=== PATIENT | male | born 1965 | race African-American/Black ===

== ENCOUNTER → 2017-09-24 | Outpatient (CLI) | payer OTHER ==
[2017-09-24 16:47] LABS: Basophils % (A) 0 %; Eosinophils # (A) 0.1 k/uL (0-0.7); Eosinophils % (A) 2 %; HCT 41.8 % (39.0-53.0); HGB 14.2 gm/dL (13.0-17.5); Lymphocytes # (A) 1.3 k/uL (1.0-4.8); Lymphocytes % (A) 36 %; MCH 28.5 pg (25.0-35.0); MCHC 33.9 g/dL (31.0-37.0); MCV 83.9 fL (80.0-100.0); Mean Platelet Volume 8.2; Monocytes # (A) 0.2 k/uL (0-1.0); Monocytes % (A) 5 %; Neutrophils # (A) 2.1 k/uL (1.3-7.7); Neutrophils % (A) 56 %; Platelet Count 203 k/uL (150-450); RBC 4.98 m/uL (4.30-5.90); RDW 13.4 % (11.5-15.5); WBC 3.8 k/uL (3.8-10.6)
[2017-09-24 16:53] LABS: Appearance,Urine Clear (Clear); Bilirubin,Urine Negative (Negative); Blood,Urine Negative (Negative); Color,Urine Yellow; Glucose,Urine (UA) Negative (Negative); Ketones,Urine Negative (Negative); Leukocyte Esterase,Urine Negative (Negative); Mucus,Urine Moderate /hpf; Nitrite,Urine Negative (Negative); Protein,Urine 2+ (Negative); RBC,Urine <1 /hpf (0-5); Specific Gravity,Urine 1.023 (1.001-1.035); Squamous Epithelial Cell,Urine <1 /hpf (0-4); Urobilinogen,Urine <2.0 mg/dL (<2.0); WBC,Urine <1 /hpf (0-5)
[2017-09-24 17:01] LABS: Albumin 3.9 g/dL (3.5-5.0); Anion Gap 11 mmol/L; Blood Urea Nitrogen 14 mg/dL (9-20); Calcium 9.2 mg/dL (8.4-10.2); Carbon Dioxide 24 mmol/L (22-30); Chloride 106 mmol/L (98-107); Glucose 224 mg/dL (74-99); Magnesium 1.5 mg/dL (1.6-2.3); Phosphorus 2.8 mg/dL (2.5-4.5); Potassium 3.8 mmol/L (3.5-5.1); Sodium 141 mmol/L (137-145)
[2017-09-25 02:14] LABS: Iron Saturation 18.73 (15.00-50.00)
[2017-09-25 02:24] LABS: Vitamin D 25 Hydroxy 19.8 ng/mL (30.0-100.0)
[2017-09-25 02:44] LABS: Parathyroid Hormone Intact 39.6 pg/mL (14.0-72.0)
== END | disposition home or self-care (01) ==
LOC: LABWHC1 15:53
PROVIDERS: ATTEND Nurse Practitioner Family
DX: M32.9 Systemic lupus erythematosus, unspecified (principal); E55.9 Vitamin D deficiency, unspecified; D64.9 Anemia, unspecified; E83.39 Other disorders of phosphorus metabolism; M10.9 Gout, unspecified; N39.0 Urinary tract infection, site not specified
CPT/HCPCS: 36415; 80048; 81001; 82040; 82306; 82728; 83540; 83550; 83735; 83970; 84100; 84550; 85025

== ENCOUNTER → 2018-02-04 | Outpatient (CLI) | payer OTHER | END | disposition home or self-care (01) | LOC: RADECHMAIN 11:48 | PROVIDERS: ATTEND Family Medicine | DX: I47.1 Supraventricular tachycardia (principal); R00.1 Bradycardia, unspecified | CPT/HCPCS: 93270; 93271 ==

== ENCOUNTER 2018-04-24 07:49 | Day surgery (SDC) | payer OTHER ==
[2018-04-22 09:42] VITALS: BMI 27.2
[~2018-04-24 07:49] MED LIST: LACTATED RINGERS 1,000 ML IV SCH; LIDOCAINE 1% 20 ML VIAL (10MG/ML) FOR IV START INTRADERMA PRN
[2018-04-24 08:17] VITALS: RESP 16; TEMP 97.1
[2018-04-24 08:25] LABS: Glucose,Whole Blood 229 mg/dL (75-99)
[2018-04-24] MEDS ORDERED: INSULIN ASPART 100 UNIT/ML 1 ML 10 ML VIAL SQ ONE (08:25)
--- NOTE | 2018-04-24 08:29 | P.GSHP ---
History of Present Illness H&P Date: 04/24/18 CHIEF COMPLAINT: Colon screen HISTORY OF PRESENT ILLNESS: The patient is a 52-year-old male who presents for colon screen. Lower endoscopy was offered for further evaluation and management. PAST MEDICAL HISTORY: Please see list. PAST SURGICAL HISTORY: Please see list. MEDICATIONS: Please see list. ALLERGIES: Please see list. SOCIAL HISTORY: No illicit drug use FAMILY HISTORY: No reports of Crohn disease or ulcerative colitis. REVIEW OF ORGAN SYSTEMS: CONSTITUTIONAL: No reports of fevers or chills. PHYSICAL EXAM: VITAL SIGNS: Stable GENERAL: Well-developed pleasant in no acute distress. HEENT: No scleral icterus. Extraocular movements grossly intact. Moist buccal mucosa. NECK: Supple without lymphadenopathy. CHEST: Unlabored respirations. Equal bilateral excursions. CARDIOVASCULAR: Regular rate and rhythm. Distal 2+ pulses. ABDOMEN: Soft, nontender, nondistended. MUSCULOSKELETAL: No clubbing, cyanosis, or edema. ASSESSMENT: 1. Colon screen. PLAN: 1. Recommend proceeding with a lower endoscopy Past Medical History Past Medical History: Diabetes Mellitus, Hyperlipidemia, Hypertension, Pulmonary Embolus (PE), Renal Disease Additional Past Medical History / Comment(s): Lupus. Pt. states he presently has blood clots in lungs secondary to kidney disease History of Any Multi-Drug Resistant Organisms: None Reported Past Surgical History: Cholecystectomy Past Anesthesia/Blood Transfusion Reactions: No Reported Reaction Smoking Status: Never smoker - Past Family History Sister(s) Family Medical History: Deep Vein Thrombosis (DVT) Brother(s) Family Medical History: Deep Vein Thrombosis (DVT) Medications and Allergies Home Medications Medication Instructions Recorded Confirmed Type metFORMIN HCL [Glucophage] 1,000 mg PO BID 09/30/14 04/24/18 History Ergocalciferol (Vitamin D2) 50,000 unit PO MO 03/21/18 04/24/18 History [Vitamin D2] Insulin Glargine,Hum.rec.anlog 35 unit SQ HS 03/21/18 04/24/18 History [Basaglar Kwikpen U-100] Irbesartan [Avapro] 150 mg PO DAILY 03/21/18 04/24/18 History Metoprolol Succinate (ER) [Toprol 50 mg PO DAILY 03/21/18 04/24/18 History Xl] Warfarin Sodium [Coumadin] 8 mg PO DAILY 03/21/18 04/22/18 History Glaucoma Drops 1 drop BOTH EYES DAILY 04/22/18 History Insulin Aspart [Novolog] 7 unit SQ PC-SUPPER 04/22/18 04/24/18 History Allergies Allergy/AdvReac Type Severity Reaction Status Date / Time No Known Allergies Allergy Verified 04/24/18 08:08 Surgical - Exam Vital Signs Temp Pulse Resp BP Pulse Ox 97.1 F L 75 16 147/70 98 04/24/18 08:16 04/24/18 08:16 04/24/18 08:16 04/24/18 08:16 04/24/18 08:16 Results - Labs Abnormal Lab Results - Last 24 Hours (Table) 04/24/18 Range/Units 08:20 POC Glucose (mg/dL) 229 H (75-99) mg/dL
[2018-04-24] MEDS ORDERED: PROPOFOL 10 MG/ML 20 ML VIAL IV ONE (08:30)
--- NOTE | 2018-04-24 08:51 | P.PCN ---
Date of Procedure: 04/24/18 Description of Procedure: PREOPERATIVE DIAGNOSIS: Colonoscopy screening, first POSTOPERATIVE DIAGNOSIS: Colonoscopy screening, first OPERATION: Colonoscopy to the ileocecal valve and appendiceal orifice. SURGEON: Ivy Valencia MD. ANESTHESIA: MAC. INDICATIONS: The patient is a 52-year-old female who presents for his first colonoscopy screening. Benefits and risks were described and informed consent was obtained. DESCRIPTION OF PROCEDURE: The patient had undergone Gatorade, MiraLAX and Dulcolax prep. He had been brought into the operating room and laid in the left lateral decubitus position. After adequate intravenous sedation, the rectum was examined with 2% lidocaine jelly. No external hemorrhoids were encountered. The rectal tone was within normal limits. No lesions were palpated in the rectal vault. An Olympus colonoscope was advanced until the ileocecal valve and appendiceal orifice were clearly viewed. The prep was poor prohibiting complete visualization of the mucosal folds. Moderate liquid stool was suctioned. No scattered diverticulosis was found. No large colonic polyps were found. Inflammation of the rectum was found. No internal hemorrhoids with inflammation was found. The colon was desufflated. The patient had tolerated the procedure well. Withdrawal time was over 6 minutes. FINDINGS: No internal hemorrhoids No external prolapsed hemorrhoids. No arteriovenous malformations. No adenomatous polyps. Mild proctitis RECOMMENDATIONS: Lower endoscopy in 5 years, 2023 for familial history. Plan - Discharge Summary Discharge Rx Participant: No New Discharge Prescriptions: No Action metFORMIN HCL [Glucophage] 1,000 mg PO BID Warfarin Sodium [Coumadin] 8 mg PO DAILY Insulin Glargine,Hum.rec.anlog [Basaglar Kwikpen U-100] 35 unit SQ HS Irbesartan [Avapro] 150 mg PO DAILY Ergocalciferol (Vitamin D2) [Vitamin D2] 50,000 unit PO MO Metoprolol Succinate (ER) [Toprol Xl] 50 mg PO DAILY Insulin Aspart [Novolog] 7 unit SQ PC-SUPPER Glaucoma Drops 1 drop BOTH EYES DAILY Discharge Medication List metFORMIN HCL [Glucophage] 1,000 mg PO BID 09/30/14 [History] Ergocalciferol (Vitamin D2) [Vitamin D2] 50,000 unit PO MO 03/21/18 [History] Insulin Glargine,Hum.rec.anlog [Basaglar Kwikpen U-100] 35 unit SQ HS 03/21/18 [ History] Irbesartan [Avapro] 150 mg PO DAILY 03/21/18 [History] Metoprolol Succinate (ER) [Toprol Xl] 50 mg PO DAILY 03/21/18 [History] Warfarin Sodium [Coumadin] 8 mg PO DAILY 03/21/18 [History] Glaucoma Drops 1 drop BOTH EYES DAILY 04/22/18 [History] Insulin Aspart [Novolog] 7 unit SQ PC-SUPPER 04/22/18 [History] Follow up Appointment(s)/Referral(s): Ivy Valencia MD [STAFF PHYSICIAN] - As Needed Patient Instructions/Handouts: *Surgery [facility] - (Anesthesia) Endoscopy Discharge Instructions, Colonoscopy (DC) Activity/Diet/Wound Care/Special Instructions: Repeat colonoscopy in 5 years, 2023. Start coumadin today. Discharge Disposition: HOME SELF-CARE
[2018-04-24 09:06] VITALS: BP 115/73; PULSE 68
== END 2018-04-24 09:33 | disposition home or self-care (01) ==
LOC: ORWHC2ENDO 07:49
PROVIDERS: ATTEND Surgery Plastic and Reconstructive Surgery
DX: Z12.11 Encounter for screening for malignant neoplasm of colon (principal); K62.89 Other specified diseases of anus and rectum; E11.9 Type 2 diabetes mellitus without complications; E78.5 Hyperlipidemia, unspecified; I10 Essential (primary) hypertension; M32.9 Systemic lupus erythematosus, unspecified; F41.9 Anxiety disorder, unspecified; Z86.711 Personal history of pulmonary embolism; Z79.4 Long term (current) use of insulin; Z79.899 Other long term (current) drug therapy; Z79.01 Long term (current) use of anticoagulants; N28.9 Disorder of kidney and ureter, unspecified
CPT/HCPCS: J2704; G0121

== ENCOUNTER → 2018-05-10 | Outpatient (CLI) | payer OTHER ==
[2018-05-10 10:04] LABS: Basophils % (A) 1 %; Eosinophils # (A) 0.1 k/uL (0-0.7); Eosinophils % (A) 2 %; HCT 45.6 % (39.0-53.0); HGB 14.8 gm/dL (13.0-17.5); Lymphocytes # (A) 1.4 k/uL (1.0-4.8); Lymphocytes % (A) 39 %; MCH 28.3 pg (25.0-35.0); MCHC 32.6 g/dL (31.0-37.0); MCV 86.9 fL (80.0-100.0); Mean Platelet Volume 9.2; Monocytes # (A) 0.3 k/uL (0-1.0); Monocytes % (A) 7 %; Neutrophils # (A) 1.8 k/uL (1.3-7.7); Neutrophils % (A) 48 %; Platelet Count 151 k/uL (150-450); RBC 5.25 m/uL (4.30-5.90); RDW 13.6 % (11.5-15.5); WBC 3.7 k/uL (3.8-10.6)
[2018-05-10 10:27] LABS: Appearance,Urine Clear (Clear); Bilirubin,Urine Negative (Negative); Blood,Urine Trace (Negative); Color,Urine Light Yellow; Glucose,Urine (UA) 4+ (Negative); Ketones,Urine Negative (Negative); Leukocyte Esterase,Urine Negative (Negative); Mucus,Urine Rare /hpf; Nitrite,Urine Negative (Negative); PH, Urine 6.5 (5.0-8.0); Protein,Urine 2+ (Negative); RBC,Urine <1 /hpf (0-5); Specific Gravity,Urine 1.019 (1.001-1.035); Squamous Epithelial Cell,Urine <1 /hpf (0-4); Urobilinogen,Urine <2.0 mg/dL (<2.0); WBC,Urine 1 /hpf (0-5)
[2018-05-10 17:32] LABS: Iron Saturation 21.54 (15.00-50.00)
[2018-05-10 17:41] LABS: Albumin 4.3 g/dL (3.80-4.90); Anion Gap 7.8 mmol/L (4.00-12.00); Carbon Dioxide 26.2 mmol/L (21.6-31.8); Magnesium 1.5 mg/dL (1.5-2.4); Phosphorus 3.4 mg/dL (2.4-5.1); Potassium 4.3 mmol/L (3.5-5.5); Vitamin D 25 Hydroxy 53.4 ng/mL (30.0-100.0)
== END | disposition home or self-care (01) ==
LOC: LABWHC1 08:59
PROVIDERS: ATTEND Nurse Practitioner Family
DX: E55.9 Vitamin D deficiency, unspecified (principal); E21.3 Hyperparathyroidism, unspecified; M32.9 Systemic lupus erythematosus, unspecified; N39.0 Urinary tract infection, site not specified; M10.9 Gout, unspecified; D64.9 Anemia, unspecified
CPT/HCPCS: 36415; 80048; 81001; 82040; 82306; 82728; 83540; 83550; 83735; 83970; 84100; 84550; 85025

== ENCOUNTER → 2018-06-27 | Outpatient (CLI) | payer OTHER ==
[2018-06-27 10:30] LABS: HGB 15.2 gm/dL (13.0-17.5); MCH 29.3 pg (25.0-35.0); MCHC 34.5 g/dL (31.0-37.0); MCV 84.9 fL (80.0-100.0); Platelet Count 193 k/uL (150-450); RBC 5.19 m/uL (4.30-5.90); RDW 13.9 % (11.5-15.5); WBC 4.5 k/uL (3.8-10.6)
[2018-06-27 21:05] LABS: Anion Gap 9.8 mmol/L (4.00-12.00); Calcium 9.2 mg/dL (8.7-10.3); Carbon Dioxide 27.2 mmol/L (21.6-31.8)
== END ==
LOC: LABWHC1 08:57
PROVIDERS: ATTEND Internal Medicine Interventional Cardiology
DX: I49.9 Cardiac arrhythmia, unspecified (principal)
CPT/HCPCS: 36415; 80048; 84443; 85027

== ENCOUNTER → 2023-06-19 | Outpatient (CLI) | payer OTHER ==
--- NOTE | 2023-06-19 15:15 | US ---
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 mild pelvicaliectasis Bladder: not fully distended Bilateral Jets seen: no No nephrolithiasis is seen. No masses are identified. The urinary bladder is anechoic. Bilateral u reteral jets are seen. IMPRESSION: Mild left-sided hydronephrosis.
== END | disposition home or self-care (01) ==
LOC: RADUSWWP 14:37
PROVIDERS: ATTEND Internal Medicine Nephrology
DX: N13.30 Unspecified hydronephrosis (principal); M32.14 Glomerular disease in systemic lupus erythematosus
CPT/HCPCS: 76770

== ENCOUNTER 2023-06-20 08:06 | Day surgery (SDC) | payer OTHER ==
[2023-06-20] MEDS ORDERED: ALPRAZolam 0.5 MG TAB PO PRN (08:21)
[2023-06-20 08:42] LABS: Basophils % (A) 1 %; Eosinophils # (A) 0.1 k/uL (0-0.7); Eosinophils % (A) 3 %; HCT 49.6 % (39.0-53.0); Lymphocytes # (A) 1.5 k/uL (1.0-4.8); Lymphocytes % (A) 29 %; MCH 28.6 pg (25.0-35.0); MCHC 32.3 g/dL (31.0-37.0); MCV 88.6 fL (80.0-100.0); Mean Platelet Volume 9.1; Monocytes # (A) 0.3 k/uL (0-1.0); Monocytes % (A) 6 %; Neutrophils # (A) 3.1 k/uL (1.3-7.7); Neutrophils % (A) 60 %; Platelet Count 175 k/uL (150-450); RDW 12.7 % (11.5-15.5); WBC 5.2 k/uL (3.8-10.6)
[2023-06-20 08:52] LABS: Prothrombin Time 10.7 sec (10.0-12.5)
[2023-06-20 08:53] LABS: Partial Thromboplastin Time 22.4 sec (22.0-30.0)
[2023-06-20 09:04] LABS: ALT 27 U/L (4-49); AST 35 U/L (17-59); African American GFR (CKD) 79 (>60 ml/min/1.73 sqM); Albumin 4.2 g/dL (3.5-5.0); Alkaline Phosphatase 68 U/L (38-126); Anion Gap 11 mmol/L; Blood Urea Nitrogen 18 mg/dL (9-20); Calcium 9.4 mg/dL (8.4-10.2); Carbon Dioxide 24 mmol/L (22-30); Chloride 105 mmol/L (98-107); Glucose 199 mg/dL (74-99); Non-African American GFR(CKD) 68 (>60 ml/min/1.73 sqM); Potassium 3.8 mmol/L (3.5-5.1); Sodium 140 mmol/L (137-145); Total Protein 8.4 g/dL (6.3-8.2)
[2023-06-20 09:16] VITALS: RESP 18; TEMP 98.1
[2023-06-20] MEDS: DESMOPRESSIN ACETATE 28 MCG in SODIUM CHLORIDE 0.9% 50 ML IVPB ONE (09:22)
[2023-06-20] MEDS: HYDROmorphone 0.5 MG/0.5 ML SYRINGE IVP PRN (10:27)
[2023-06-20 15:12] VITALS: BP 134/76; PULSE 64
--- NOTE | 2023-06-21 12:22 | CT ---
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 CT DLP: 3278 mGycm, Automated exposure control for dose reduction was used. Contrast used: mL of , none Oral contrast used: none ATTENDING: Dr. Chepe Joiner TECHNIQUE: CT guided percutaneous biopsy of left kidney cortex. Using coaxial method. Total CT dose 3278 mGycm. Total fluoroscopy time was seconds. FINDINGS: The procedure was explained to the patient including risks of bleeding, bruising, infection, damage t o nearby organs and need for additional therapy including potential surgery. All questions were answ ered and consent was obtained. The previous studies were reviewed. The patient was placed on the CT couch in the prone position. T he overlying skin was marked and prepped using sterile method. Timeout was taken per protocol. Follow ing administration of conscious sedation and local anesthesia a 19 gauge coaxial needle was introdu mary lou on the left kidney cortex. The coaxial needle tip was directed with CT guidance. Three 20 gauge coaxial biopsies were then obtained. Following the procedure the needle was removed and sterile d ressing was applied to the percutaneous site. Post biopsy imaging demonstrated no evidence of March. Patient was taken for postprocedure observation in stable condition. IMPRESSIONS: Status post percutaneous left renal cortex biopsy as described above. Pathology results pending.
== END 2023-06-20 14:52 | disposition home or self-care (01) ==
LOC: RADPROMAIN 08:06
PROVIDERS: ATTEND Internal Medicine Nephrology
DX: M32.14 Glomerular disease in systemic lupus erythematosus (principal); E78.5 Hyperlipidemia, unspecified; I10 Essential (primary) hypertension; E55.9 Vitamin D deficiency, unspecified; E11.9 Type 2 diabetes mellitus without complications; Z79.01 Long term (current) use of anticoagulants; Z86.711 Personal history of pulmonary embolism; Z86.718 Personal history of other venous thrombosis and embolism; Z79.899 Other long term (current) drug therapy
CPT/HCPCS: 86900; 86901; 80053; 85025; 85610; 85730; 86850; 36415; 50200; 77012; J2597; J1170

== ENCOUNTER → 2023-08-15 | Outpatient (CLI) | payer OTHER ==
[2023-08-15 16:06] LABS: Creatinine,Urine Random 424.5 mg/dL
[2023-08-15 19:20] LABS: Basophils # (A) 0.02 X 10*3/uL (0.00-0.10); Basophils % (A) 0.5 %; Eosinophils # (A) 0.13 X 10*3/uL (0.04-0.35); Eosinophils % (A) 3.4 %; HCT 42.7 % (39.6-50.0); HGB 14.2 g/dL (13.0-17.0); Lymphocytes # (A) 1.43 X 10*3/uL (0.90-5.00); Lymphocytes % (A) 37.3 %; MCH 28.7 pg (27.0-32.0); MCHC 33.3 g/dL (32.0-37.0); MCV 86.3 FL (80.0-97.0); Mean Platelet Volume 11.5 FL (9.5-12.2); Monocytes # (A) 0.33 X 10*3/uL (0.20-1.00); Monocytes % (A) 8.6 %; NRBC Per 100 WBC 0 X 10*3/uL (0.00-0.01); Neutrophils # (A) 1.91 X 10*3/uL (1.80-7.70); Neutrophils % (A) 49.9 %; Platelet Count 167 X 10*3/uL (140-440); RBC 4.95 X 10*6/uL (4.40-5.60); RDW 12.3 % (11.5-14.5); WBC 3.83 X 10*3/uL (4.50-10.00)
[2023-08-15 21:05] LABS: Appearance,Urine Clear (Clear); Bacteria,Urine None Seen (None Seen); Bilirubin,Urine Negative (Negative); Blood,Urine Negative (Negative); Color,Urine Yellow (Yellow); Ketones,Urine Trace (Negative); Nitrite,Urine Negative (Negative); PH, Urine 5.5; Specific Gravity,Urine >1.035 (1.001-1.030)
[2023-08-15 21:10] LABS: % Iron Saturation 15.38 (15.00-50.00); Albumin 3.7 g/dL (3.8-4.9); Blood Urea Nitrogen 17.4 mg/dL (9.0-27.0); Calcium 9.3 mg/dL (8.7-10.3); Carbon Dioxide 25.5 mmol/L (21.6-31.8); Chloride 104 mmol/L (96-109); Glucose 134 mg/dL (70-110); Iron 44 UG/DL (65-175); Magnesium 1.7 mg/dL (1.5-2.4); Sodium 141 mmol/L (135-145); Total Iron Binding Capacity 286 UG/DL (228-460)
== END | disposition home or self-care (01) ==
LOC: LABWHC1 11:43
PROVIDERS: ATTEND Internal Medicine Nephrology
DX: M32.14 Glomerular disease in systemic lupus erythematosus (principal)
CPT/HCPCS: 36415; 80048; 81001; 82040; 82306; 82570; 82728; 83540; 83550; 83735; 83970; 84156; 85025

== ENCOUNTER → 2024-03-28 | Outpatient (CLI) | payer OTHER ==
[2024-03-28 11:35] LABS: Creatinine,Urine Random 78.3 mg/dL
[2024-03-28 11:50] LABS: Protein/Creatinine Ratio,Urine 4.93
[2024-03-28 15:28] LABS: % Iron Saturation 27.24 (15.00-50.00); Albumin 3.7 g/dL (3.8-4.9); BUN/Creat Ratio 14.45 Ratio (12.00-20.00); Blood Urea Nitrogen 15.9 mg/dL (9.0-27.0); Calcium 9.1 mg/dL (8.7-10.3); Carbon Dioxide 24.9 mmol/L (21.6-31.8); Chloride 103 mmol/L (96-109); Glucose 193 mg/dL (70-110); Iron 82 UG/DL (65-175); Potassium 4.2 mmol/L (3.5-5.5); Sodium 138 mmol/L (135-145); Total Iron Binding Capacity 301 UG/DL (228-460)
[2024-03-28 17:54] LABS: Bacteria,Urine None Seen (None Seen)
[2024-03-28 19:14] LABS: Appearance,Urine Clear (Clear); Bilirubin,Urine Negative (Negative); Blood,Urine Negative (Negative); Color,Urine Yellow (Yellow); Ketones,Urine Negative (Negative); Nitrite,Urine Negative (Negative); PH, Urine 6.5; Specific Gravity,Urine >1.035 (1.001-1.030)
[2024-03-28 21:47] LABS: Basophils # (A) 0.03 X 10*3/uL (0.00-0.10); Basophils % (A) 0.7 %; Eosinophils # (A) 0.13 X 10*3/uL (0.04-0.35); Eosinophils % (A) 2.8 %; HCT 44.9 % (39.6-50.0); HGB 15.2 g/dL (13.0-17.0); Lymphocytes % (A) 34.9 %; MCH 29.2 pg (27.0-32.0); MCHC 33.9 g/dL (32.0-37.0); MCV 86.2 FL (80.0-97.0); Mean Platelet Volume 11.7 FL (9.5-12.2); Monocytes # (A) 0.39 X 10*3/uL (0.20-1.00); Monocytes % (A) 8.5 %; NRBC Per 100 WBC 0 X 10*3/uL (0.00-0.01); Neutrophils # (A) 2.42 X 10*3/uL (1.80-7.70); Neutrophils % (A) 52.9 %; Platelet Count 156 X 10*3/uL (140-440); RBC 5.21 X 10*6/uL (4.40-5.60); RDW 12.7 % (11.5-14.5); WBC 4.58 X 10*3/uL (4.50-10.00)
== END | disposition home or self-care (01) ==
LOC: LABWHC1 10:06
PROVIDERS: ATTEND Internal Medicine Nephrology
DX: M32.14 Glomerular disease in systemic lupus erythematosus (principal)
CPT/HCPCS: 36415; 80048; 81001; 82040; 82306; 82570; 82728; 83540; 83550; 83735; 83970; 84156; 85025

== ENCOUNTER 2024-04-10 08:54 | Emergency (ER) | payer OTHER ==
[2024-04-10 09:01] VITALS: BP 143/83; PULSE 67; TEMP 97.5
--- NOTE | 2024-04-10 09:54 | ED ---
General Adult HPI - General Chief complaint: Weakness Stated complaint: Fall on thinner-brittney leg pain Time Seen by Provider: 04/10/24 09:08 Source: patient Mode of arrival: ambulatory Limitations: no limitations - History of Present Illness Initial comments: Dictation was produced using [employer] dictation software. please excuse any grammatical, word or spelling errors. Chief Complaint: 58-year-old male presents to the emergency department for weakness History of Present Illness: Patient 58-year-old male for the last week and a half he has been complaining of weakness. States that his legs feel rubbery. Was recently put on some different medications. He takes diabetes medications. States that he feels like his legs went rubbery. Denies any pain complaints his upper extremities feel fine. Seems that he is only weak when he tries to get up and walk around. The ROS documented in this emergency department record has been reviewed and confirmed by me. Those systems with pertinent positive or negative responses have been documented in the HPI. All other systems are other negative and/or noncontributory. - Related Data Home Medications Medication Instructions Recorded Confirmed Ergocalciferol (Vitamin D2) 50,000 unit PO MO 03/21/18 04/10/24 [Vitamin D2] Insulin Aspart [Novolog] 13 unit SQ TID-W/MEALS 04/22/18 04/10/24 Apixaban [Eliquis] 10 mg PO DAILY 06/12/23 04/10/24 Insulin Glargine,Hum.rec.anlog 60 units SQ HS 06/12/23 04/10/24 [Lantus Solostar Pen] Losartan Potassium 100 mg PO DAILY 06/12/23 04/10/24 Dapagliflozin Propanediol [Farxiga] 10 mg PO DAILY 04/10/24 04/10/24 Pravastatin Sodium [Pravachol] 40 mg PO HS 04/10/24 04/10/24 mycophenolate mofetiL [Cellcept] 500 mg PO DAILY 04/10/24 04/10/24 tadalafiL 10 mg PO Q36H PRN 04/10/24 04/10/24 Allergies Allergy/AdvReac Type Severity Reaction Status Date / Time No Known Allergies Allergy Verified 04/10/24 09:39 Review of Systems ROS Statement: Those systems with pertinent positive or pertinent negative responses have been documented in the HPI. ROS Other: All systems not noted in ROS Statement are negative. Past Medical History Past Medical History: Diabetes Mellitus, Hyperlipidemia, Hypertension, Pulmonary Embolus (PE), Renal Disease Additional Past Medical History / Comment(s): Lupus History of Any Multi-Drug Resistant Organisms: None Reported Past Surgical History: Cholecystectomy Past Anesthesia/Blood Transfusion Reactions: No Reported Reaction Past Psychological History: Anxiety Smoking Status: Never smoker Past Alcohol Use History: None Reported Past Drug Use History: None Reported - Past Family History Sister(s) Family Medical History: Deep Vein Thrombosis (DVT) Brother(s) Family Medical History: Deep Vein Thrombosis (DVT) General Exam - General Exam Comments Initial Comments: PHYSICAL EXAM: General Impression: Alert and oriented x3, not in acute distress HEENT: Normocephalic atraumatic, extra-ocular movements intact, pupils equal and reactive to light bilaterally, mucous membranes moist. Cardiovascular: Heart regular rate and rhythm Chest: Able to complete full sentences, no retractions, no tachypnea Abdomen: abdomen soft, non-tender, non-distended, no organomegaly Musculoskeletal: Pulses present and equal in all extremities, no peripheral edema Motor: no focal deficits noted Neurological: CN II-XII grossly intact, no focal motor or sensory deficits noted Skin: Intact with no visualized rashes Psych: Normal affect and mood Limitations: no limitations Course Vital Signs 04/10/24 04/10/24 04/10/24 08:56 09:19 10:07 Temperature 97.5 F L Pulse Rate 67 Respiratory 18 16 18 Rate Blood Pressure 143/83 O2 Sat by Pulse 98 Oximetry EKG Findings - EKG Comments: EKG Findings:: My EKG interpretation: Ventricular rate 80, sinus rhythm, IL interval 128, QRS 93, QTc 4 1. No IL prolongation, no QTC prolongation, no ST or T-wave changes noted. Overall, this EKG is unremarkable Medical Decision Making - Medical Decision Making Was pt. sent in by a medical professional or institution (, [place], CITY [employer]NER, urgent care, hospital, or long term...) When possible be specific @ -No Did you speak to anyone other than the patient for history (EMS, parent, family, police, friend...)? What history was obtained from this source @ -No Did you review nursing and triage notes (agree or disagree)? Why? @ -I reviewed and agree with nursing and triage notes Were old charts reviewed (outside hosp., previous admission, EMS record, old EKG, old radiological studies, urgent care reports/EKG's, long term records)? Report findings @ -No old charts were reviewed Differential Diagnosis (chest pain, altered mental status, abdominal pain women, abdominal pain men, vaginal bleeding, musculoskeletal, weakness, fever, dyspnea, syncope, headache, dizziness, GI bleed, back pain, seizure, CVA, palpatations, mental health)? @ -Differential Weakness: Hypoglycemia, shock, sepsis, hyponatremia, anemia, infection, DE, ETOH, adverse medicine reaction, overdose, stroke, this is not meant to be an all-inclusive list. EKG interpreted by me (3pts min.). @ -See above X-rays interpreted by me (1pt min.). @ -None done CT interpreted by me (1pt min.). @ -None done U/S interpreted by me (1pt. min.). @ -None done What testing was considered but not performed or refused? (CT, X-rays, U/S, labs)? Why? @ -None What meds were considered but not given or refused? Why? @ -None Was smoking cessation discussed for >3mins.? @ -No Were there social determinants of health that impacted care today? How? (Homelessness, low income, unemployed, alcoholism, drug addiction, transportation, low edu. Level, literacy, decrease access to med. care, alf, rehab)? @ -No Was there de-escalation of care discussed even if they declined (Discuss DNR or withdrawal of care, Hospice)? DNR status @ -No What co-morbidities impacted this encounter? (DM, HTN, Smoking, COPD, CAD, Cancer, CVA, ARF, Chemo, Hep., AIDS, mental health diagnosis, sleep apnea, morbid obesity)? @ -Diabetes, lupus Was patient admitted / discharged? Hospital course, mention meds given and route, prescriptions, significant lab abnormalities, going to OR and other pertinent info. @ -50-year-old male presents emergency department with lower extremity weakness. Patient well-appearing at the bedside denies any pain complaints. Vital signs are stable. Patient has no focal neurologic deficits. No symptoms of hyperreflexia or upper motor neuron disease. Metabolic panel obtained. Labs within acceptable limits. Slight dehydration. Patient well-appearing on reevaluation at 12:15 PM disposition options were discussed agreeable discharge to follow-up closely with primary care doctor. Did you discuss the management of the patient with other professionals (professionals i.e. , PA, [employer] PL[employer]NER, lab, RT, psych nurse, sr. social media & mobile manager, print designer, teacher, grants officer, case sealer)? Give summary @ -No Was critical care preformed (if so, how long)? @ -No Undiagnosed new problem with uncertain prognosis? @ -No Drug Therapy requiring intensive monitoring for toxicity (Heparin, Nitro, I nsulin, Cardizem)? @ -No Were any procedures done? @ -No Diagnosis/symptom? Acute, or Chronic, or Acute on Chronic? Uncomplicated (without systemic symptoms) or Complicated (systemic symptoms)? @ -Lower extremity weakness Side effects of treatment? @ -No Exacerbation, Progression, or Severe Exacerbation? @ -No Poses a threat to life or bodily function? How? (Chest pain, USA, DE, pneumonia, PE, COPD, DKA, ARF, appy, cholecystitis, CVA, Diverticulitis, Homicidal, Suicidal, threat to staff... and all critical care pts) @ -No - Lab Data Result diagrams: 04/10/24 10:07 04/10/24 10:07 Lab Results 04/10/24 04/10/24 04/10/24 Range/Units 10:07 10:07 10:07 WBC 4.4 (3.8-10.6) k/uL RBC 4.74 (4.30-5.90) m/uL Hgb 14.1 (13.0-17.5) gm/dL Hct 40.6 (39.0-53.0) % MCV 85.6 (80.0-100.0) fL MCH 29.8 (25.0-35.0) pg MCHC 34.8 (31.0-37.0) g/dL RDW 13.2 (11.5-15.5) % Plt Count 150 (150-450) k/uL MPV 9.4 Neutrophils % 63 % Lymphocytes % 27 % Monocytes % 6 % Eosinophils % 2 % Basophils % 0 % Neutrophils # 2.8 (1.3-7.7) k/uL Lymphocytes # 1.2 (1.0-4.8) k/uL Monocytes # 0.3 (0-1.0) k/uL Eosinophils # 0.1 (0-0.7) k/uL Basophils # 0.0 (0-0.2) k/uL Sodium 136 L (137-145) mmol/L Potassium 4.4 (3.5-5.1) mmol/L Chloride 103 (98-107) mmol/L Carbon Dioxide 26 (22-30) mmol/L Anion Gap 7 mmol/L BUN 22 H (9-20) mg/dL Creatinine 1.09 (0.66-1.25) mg/dL Est GFR (CKD-EPI)AfAm 86 (>60 ml/min/1.73 sqM) Est GFR (CKD-EPI)NonAf 75 (>60 ml/min/1.73 sqM) Glucose 155 H (74-99) mg/dL Plasma Lactic Acid Alberto 1.1 (0.7-2.0) mmol/L Calcium 9.4 (8.4-10.2) mg/dL Magnesium 1.8 (1.6-2.3) mg/dL Total Bilirubin 0.7 (0.2-1.3) mg/dL AST 40 (17-59) U/L ALT 29 (4-49) U/L Alkaline Phosphatase 59 (38-126) U/L Total Protein 6.9 (6.3-8.2) g/dL Albumin 3.5 (3.5-5.0) g/dL Urine Color Urine Appearance (Clear) Urine pH (5.0-8.0) Ur Specific Gilliam (1.001-1.035) Urine Protein (Negative) Urine Glucose (UA) (Negative) Urine Ketones (Negative) Urine Blood (Negative) Urine Nitrite (Negative) Urine Bilirubin (Negative) Urine Urobilinogen (<2.0) mg/dL Ur Leukocyte Esterase (Negative) Urine RBC (0-5) /hpf Urine WBC (0-5) /hpf 04/10/24 Range/Units 10:37 WBC (3.8-10.6) k/uL RBC (4.30-5.90) m/uL Hgb (13.0-17.5) gm/dL Hct (39.0-53.0) % MCV (80.0-100.0) fL MCH (25.0-35.0) pg MCHC (31.0-37.0) g/dL RDW (11.5-15.5) % Plt Count (150-450) k/uL MPV Neutrophils % % Lymphocytes % % Monocytes % % Eosinophils % % Basophils % % Neutrophils # (1.3-7.7) k/uL Lymphocytes # (1.0-4.8) k/uL Monocytes # (0-1.0) k/uL Eosinophils # (0-0.7) k/uL Basophils # (0-0.2) k/uL Sodium (137-145) mmol/L Potassium (3.5-5.1) mmol/L Chloride (98-107) mmol/L Carbon Dioxide (22-30) mmol/L Anion Gap mmol/L BUN (9-20) mg/dL Creatinine (0.66-1.25) mg/dL Est GFR (CKD-EPI)AfAm (>60 ml/min/1.73 sqM) Est GFR (CKD-EPI)NonAf (>60 ml/min/1.73 sqM) Glucose (74-99) mg/dL Plasma Lactic Acid Alberto (0.7-2.0) mmol/L Calcium (8.4-10.2) mg/dL Magnesium (1.6-2.3) mg/dL Total Bilirubin (0.2-1.3) mg/dL AST (17-59) U/L ALT (4-49) U/L Alkaline Phosphatase (38-126) U/L Total Protein (6.3-8.2) g/dL Albumin (3.5-5.0) g/dL Urine Color Light Yellow Urine Appearance Clear (Clear) Urine pH 6.5 (5.0-8.0) Ur Specific Gilliam 1.025 (1.001-1.035) Urine Protein 3+ H (Negative) Urine Glucose (UA) 4+ H (Negative) Urine Ketones 1+ H (Negative) Urine Blood Trace H (Negative) Urine Nitrite Negative (Negative) Urine Bilirubin Negative (Negative) Urine Urobilinogen <2.0 (<2.0) mg/dL Ur Leukocyte Esterase Negative (Negative) Urine RBC <1 (0-5) /hpf Urine WBC <1 (0-5) /hpf Disposition Clinical Impression: Weakness Disposition: HOME SELF-CARE Condition: Fair Instructions (If sedation given, give patient instructions): Weakness (ED) Is patient prescribed a controlled substance at d/c from ED?: No Referrals: Ke Diaz DO [Primary Care Provider] - 1-2 days Time of Disposition: 12:17
[2024-04-10 10:08] VITALS: RESP 18
[2024-04-10 10:35] LABS: Basophils % (A) 0 %; Eosinophils # (A) 0.1 k/uL (0-0.7); Eosinophils % (A) 2 %; HCT 40.6 % (39.0-53.0); HGB 14.1 gm/dL (13.0-17.5); Lymphocytes # (A) 1.2 k/uL (1.0-4.8); Lymphocytes % (A) 27 %; MCH 29.8 pg (25.0-35.0); MCHC 34.8 g/dL (31.0-37.0); MCV 85.6 fL (80.0-100.0); Mean Platelet Volume 9.4; Monocytes # (A) 0.3 k/uL (0-1.0); Monocytes % (A) 6 %; Neutrophils # (A) 2.8 k/uL (1.3-7.7); Neutrophils % (A) 63 %; Platelet Count 150 k/uL (150-450); RBC 4.74 m/uL (4.30-5.90); RDW 13.2 % (11.5-15.5); WBC 4.4 k/uL (3.8-10.6)
[2024-04-10 10:41] LABS: ALT 29 U/L (4-49); AST 40 U/L (17-59); African American GFR (CKD) 86 (>60 ml/min/1.73 sqM); Albumin 3.5 g/dL (3.5-5.0); Alkaline Phosphatase 59 U/L (38-126); Anion Gap 7 mmol/L; Blood Urea Nitrogen 22 mg/dL (9-20); Calcium 9.4 mg/dL (8.4-10.2); Carbon Dioxide 26 mmol/L (22-30); Chloride 103 mmol/L (98-107); Glucose 155 mg/dL (74-99); Magnesium 1.8 mg/dL (1.6-2.3); Non-African American GFR(CKD) 75 (>60 ml/min/1.73 sqM); Potassium 4.4 mmol/L (3.5-5.1); Sodium 136 mmol/L (137-145); Total Bilirubin 0.7 mg/dL (0.2-1.3); Total Protein 6.9 g/dL (6.3-8.2)
[2024-04-10 10:58] LABS: Appearance,Urine Clear (Clear); Bilirubin,Urine Negative (Negative); Blood,Urine Trace (Negative); Color,Urine Light Yellow; Glucose,Urine (UA) 4+ (Negative); Ketones,Urine 1+ (Negative); Leukocyte Esterase,Urine Negative (Negative); Nitrite,Urine Negative (Negative); PH, Urine 6.5 (5.0-8.0); Protein,Urine 3+ (Negative); RBC,Urine <1 /hpf (0-5); Specific Gravity,Urine 1.025 (1.001-1.035); Urobilinogen,Urine <2.0 mg/dL (<2.0); WBC,Urine <1 /hpf (0-5)
== END 2024-04-10 12:24 | disposition home or self-care (01) ==
LOC: EC 08:54
DX: R53.1 Weakness (principal); M79.605 Pain in left leg; M79.604 Pain in right leg; W18.30XA Fall on same level, unspecified, initial encounter
CPT/HCPCS: 36415; 80053; 81001; 83605; 83735; 85025; 93005; 99285

== ENCOUNTER → 2024-06-30 | Outpatient (CLI) | payer OTHER ==
[2024-06-30 15:33] LABS: INR 2.95 sec (0.93-1.11); Prothrombin Time 30.5 sec (9.9-11.9)
== END | disposition home or self-care (01) ==
LOC: LABWHC1 08:20
PROVIDERS: ATTEND Family Medicine
DX: I48.91 Unspecified atrial fibrillation (principal)
CPT/HCPCS: 36415; 85610

== ENCOUNTER → 2024-07-29 | Outpatient (CLI) | payer OTHER ==
[2024-07-29 15:20] LABS: Bacteria,Urine None Seen (None Seen)
[2024-07-29 15:41] LABS: Appearance,Urine Clear (Clear); Bilirubin,Urine Negative (Negative); Blood,Urine Trace (Negative); Color,Urine Yellow (Yellow); Ketones,Urine Negative (Negative); Nitrite,Urine Negative (Negative); PH, Urine 6.5; Specific Gravity,Urine >1.035 (1.001-1.030)
[2024-07-29 15:56] LABS: Basophils # (A) 0.04 X 10*3/uL (0.00-0.10); Basophils % (A) 1.1 %; Eosinophils # (A) 0.11 X 10*3/uL (0.04-0.35); HCT 45.1 % (39.6-50.0); HGB 14.8 g/dL (13.0-17.0); Lymphocytes # (A) 1.44 X 10*3/uL (0.90-5.00); Lymphocytes % (A) 39.3 %; MCH 28.5 pg (27.0-32.0); MCHC 32.8 g/dL (32.0-37.0); MCV 86.7 FL (80.0-97.0); Mean Platelet Volume 11.8 FL (9.5-12.2); Monocytes # (A) 0.38 X 10*3/uL (0.20-1.00); Monocytes % (A) 10.4 %; NRBC Per 100 WBC 0 X 10*3/uL (0.00-0.01); Neutrophils # (A) 1.68 X 10*3/uL (1.80-7.70); Neutrophils % (A) 45.9 %; Platelet Count 159 X 10*3/uL (140-440); RDW 12.6 % (11.5-14.5); WBC 3.66 X 10*3/uL (4.50-10.00)
[2024-07-29 16:06] LABS: % Iron Saturation 25.36 (15.00-50.00); Albumin 3.3 g/dL (3.8-4.9); BUN/Creat Ratio 12.36 Ratio (12.00-20.00); Blood Urea Nitrogen 13.6 mg/dL (9.0-27.0); Calcium 8.8 mg/dL (8.7-10.3); Carbon Dioxide 26.1 mmol/L (21.6-31.8); Chloride 103 mmol/L (96-109); Glucose 219 mg/dL (70-110); Iron 71 UG/DL (65-175); Magnesium 1.8 mg/dL (1.5-2.4); Sodium 140 mmol/L (135-145); Total Iron Binding Capacity 280 UG/DL (228-460); Uric Acid 4.8 mg/dL (3.7-8.7)
[2024-07-29 18:09] LABS: Urine Creatinine 99.7 mg/dL (39.0-259.0)
== END | disposition home or self-care (01) ==
LOC: LABWHC1 09:37
PROVIDERS: ATTEND Internal Medicine Nephrology
DX: M32.14 Glomerular disease in systemic lupus erythematosus (principal)
CPT/HCPCS: 36415; 80048; 81001; 82040; 82043; 82306; 82570; 82728; 83540; 83550; 83735; 83970; 84100; 84550; 85025